=== PATIENT | male | born 1955 | race Caucasian/White ===

== ENCOUNTER 2016-12-09 01:47 | Emergency (ER) | payer SELFPAY | END 2016-12-09 03:40 | disposition left against medical advice (07) | LOC: SED 01:47 | DX: F19.10 Other psychoactive substance abuse, uncomplicated (principal); F10.129 Alcohol abuse with intoxication, unspecified; Y90.9 Presence of alcohol in blood, level not specified; R41.82 Altered mental status, unspecified | CPT/HCPCS: 99283 ==